=== PATIENT | female | born 1945 | race Two or more races ===

== ENCOUNTER → 2018-12-05 | Outpatient (CLI) | payer OTHER ==
[~2018-12-05] MED LIST: ALBU90OI61 INH; AMIT75 PO; CELE200 PO; GABA600 PO; HYDACE5 PO; Mirapex0.25 MG PO; OXYACE5T PO; PROP60 PO
[2018-12-05 13:38] LABS: BASOPHILS ABSOLUTE AUTO 0.05 K/mm3 (0.00-0.23); BASOPHILS PERCENT AUTO 1 % (0-2); EOSINOPHILS ABSOLUTE AUTO 0.22 K/mm3 (0.00-0.68); EOSINOPHILS PERCENT AUTO 4 % (0-6); Hematocrit 38.2 % (33.0-51.0); Hemoglobin 12.7 g/dL (11.5-16.0); IMMATURE GRAN ABSOLUTE AUTO 0.01 K/mm3 (0.00-0.10); IMMATURE GRAN PERCENT AUTO 0 % (0-1); LYMPHOCYTES ABSOLUTE AUTO 1.73 K/mm3 (0.84-5.20); LYMPHOCYTES PERCENT AUTO 31 % (21-46); MONOCYTES ABSOLUTE AUTO 0.46 K/mm3 (0.16-1.47); MONOCYTES PERCENT AUTO 8 % (4-13); Mean Corpuscular HGB 31.8 pg (26.0-34.0); Mean Corpuscular HGB Conc 33.2 g/dL (31.5-36.5); Mean Corpuscular Volume 96 fL (80-100); Mean Platelet Volume 10.1 fL (9.1-12.4); NEUTROPHILS ABSOLUTE AUTO 3.14 K/mm3 (1.96-9.15); NEUTROPHILS PERCENT AUTO 56 % (41-73); Platelet Count 245 K/mm3 (150-400); RDW Coefficient Variation 13.2 % (11.7-14.2); RDW Standard Deviation 46.8 fL (35.1-46.3); White Blood Cell Count 5.61 K/mm3 (4.00-11.30)
[2018-12-05 14:29] LABS: Alanine Aminotransfer (ALT/SGP 18 U/L (12-78); Albumin, Blood 3.5 g/dL (3.4-5.0); Albumin/Globulin Ratio 1.3 (0.8-1.8); Alk Phos 57 U/L (50-136); Anion Gap 8 mmol/L (6-16); Aspartate Aminotrans (AST/SGOT 9 U/L (12-37); Bilirubin, Total 0.4 mg/dL (0.1-1.0); Blood Urea Nitrogen 16 mg/dL (8-24); Bun/Creatinine Ratio 25.3 (12.0-20.0); CO2, Blood 25 mmol/L (21-32); Calcium, Blood 8.7 mg/dL (8.5-10.1); Chloride, Blood 107 mmol/L (98-108); Creatinine, Blood 0.63 mg/dL (0.40-1.00); Globulin, Blood 2.7 g/dL (2.2-4.0); Glomerular Filtration Rate >60 (60-); Glucose, Blood 155 mg/dL (70-99); Potassium, Blood 4.1 mmol/L (3.5-5.5); Sodium, Blood 140 mmol/L (136-145); Total Protein, Blood 6.2 g/dL (6.4-8.2)
[2018-12-05 16:45] LABS: Free Thyroxine 1.02 ng/dL (0.70-1.60)
[2018-12-05 16:50] LABS: Thyroid Stimulating Hormone 1.13 uIU/mL (0.360-4.800)
== END | disposition home or self-care (01) ==
LOC: LAB SHORT 13:27 → LAB 13:27
PROVIDERS: Hospitalist
DX: R55 Syncope and collapse (principal); R10.12 Left upper quadrant pain; R53.83 Other fatigue
CPT/HCPCS: 80053; 84439; 84443; 85025

== ENCOUNTER → 2020-09-19 | Outpatient (CLI) | payer OTHER ==
[2020-09-19 13:57] LABS: Anion Gap 8 mmol/L (6-16); Blood Urea Nitrogen 14 mg/dL (8-24); Bun/Creatinine Ratio 23.7 (12.0-20.0); CO2, Blood 27 mmol/L (21-32); Chloride, Blood 106 mmol/L (98-108); Creatinine, Blood 0.59 mg/dL (0.40-1.00); Glomerular Filtration Rate >60 (60-); Glucose, Blood 87 mg/dL (70-99); Magnesium, Blood 2.2 mg/dL (1.6-2.4); Potassium, Blood 3.8 mmol/L (3.5-5.5); Sodium, Blood 141 mmol/L (136-145); Thyroid Stimulating Hormone 0.972 uIU/mL (0.360-4.800)
== END | disposition home or self-care (01) ==
LOC: PLD 13:01 → LAB SHORT 13:01
PROVIDERS: Internal Medicine Cardiovascular Disease
DX: R94.31 Abnormal electrocardiogram [ECG] [EKG] (principal); R06.02 Shortness of breath; R00.2 Palpitations
CPT/HCPCS: 80048; 83735; 83880; 84439; 84443

== ENCOUNTER → 2021-02-16 | Outpatient (CLI) | payer OTHER ==
[2021-02-16 18:50] LABS: BASOPHILS ABSOLUTE AUTO 0.05 K/mm3 (0.00-0.23); BASOPHILS PERCENT AUTO 1 % (0-2); EOSINOPHILS ABSOLUTE AUTO 0.16 K/mm3 (0.00-0.68); EOSINOPHILS PERCENT AUTO 3 % (0-6); Hematocrit 38.2 % (33.0-51.0); Hemoglobin 12.5 g/dL (11.5-16.0); IMMATURE GRAN ABSOLUTE AUTO 0.01 K/mm3 (0.00-0.10); IMMATURE GRAN PERCENT AUTO 0 % (0-1); LYMPHOCYTES PERCENT AUTO 30 % (21-46); MONOCYTES ABSOLUTE AUTO 0.45 K/mm3 (0.16-1.47); MONOCYTES PERCENT AUTO 8 % (4-13); Mean Corpuscular HGB 31.6 pg (26.0-34.0); Mean Corpuscular HGB Conc 32.7 g/dL (31.5-36.5); Mean Corpuscular Volume 97 fL (80-100); Mean Platelet Volume 10.6 fL (9.1-12.4); NEUTROPHILS ABSOLUTE AUTO 3.28 K/mm3 (1.96-9.15); NEUTROPHILS PERCENT AUTO 58 % (41-73); Platelet Count 257 K/mm3 (150-400); RDW Coefficient Variation 13.4 % (11.7-14.2); RDW Standard Deviation 47.6 fL (35.1-46.3); Red Blood Cell Count 3.96 M/mm3 (3.80-5.20); White Blood Cell Count 5.65 K/mm3 (4.00-11.30)
[2021-02-16 20:27] LABS: Anion Gap 4 mmol/L (6-16); Blood Urea Nitrogen 20 mg/dL (8-24); Bun/Creatinine Ratio 29.5 (12.0-20.0); CO2, Blood 28 mmol/L (21-32); Calcium, Blood 8.9 mg/dL (8.5-10.1); Chloride, Blood 107 mmol/L (98-108); Creatinine, Blood 0.68 mg/dL (0.40-1.00); Glomerular Filtration Rate >60 (60-); Glucose, Blood 111 mg/dL (70-99); Potassium, Blood 4.3 mmol/L (3.5-5.5); Sodium, Blood 139 mmol/L (136-145)
== END | disposition home or self-care (01) ==
LOC: LAB 15:30 → LAB SHORT 15:30
PROVIDERS: Hospitalist
DX: R25.2 Cramp and spasm (principal)
CPT/HCPCS: 80048; 85025

== ENCOUNTER 2022-06-22 08:19 | Day surgery (SDC) | payer OTHER ==
[~2022-06-22] VITALS: Ht 167.6 cm; Wt 63.4 kg
[2022-06-22] MEDS ORDERED: FURO20 (08:37)
[2022-06-22] MEDS ORDERED: PREG150 (08:38)
[2022-06-22] MEDS ORDERED: MONT10T (08:38)
[2022-06-22] MEDS ORDERED: KLOR-CON M1010 MEQ (08:38)
[2022-06-22] MEDS ORDERED: TRAZ50 (08:38)
== END 2022-06-22 10:25 | disposition home or self-care (01) ==
LOC: ORSCSDS 08:19
PROVIDERS: Internal Medicine Gastroenterology
PROC: 0DB78ZX Excision of Stomach, Pylorus, Via Natural or Artificial Opening Endoscopic, Diagnostic (ICD-10-PCS; principal; 2022-06-22 10:00)
PROC: 0DB98ZX Excision of Duodenum, Via Natural or Artificial Opening Endoscopic, Diagnostic (ICD-10-PCS; principal; 2022-06-22 10:00)
DX: R10.13 Epigastric pain (principal); K29.80 Duodenitis without bleeding; K21.9 Gastro-esophageal reflux disease without esophagitis; R19.7 Diarrhea, unspecified; J44.9 Chronic obstructive pulmonary disease, unspecified; Z79.899 Other long term (current) drug therapy; F32.A Depression, unspecified
CPT/HCPCS: 88305; 88342; A9270; J2704; J7120

== ENCOUNTER 2022-11-01 09:35 | Day surgery (SDC) | payer OTHER ==
[~2022-11-01] VITALS: Ht 170.2 cm; Wt 65.3 kg
[~2022-11-01 09:35] MED LIST changes: +CEFD300 PO; +FURO20; +KLOR-CON M1010 MEQ; +MONT10T; +PREG150; +TRAZ50
--- NOTE | 2022-11-01 12:45 | NUR ---
PATIENT ARRIVED TO RECOVERY IN RECLINER. VSS. R RADIAL ACCESS SITE CLOSURE WITH 12 CC OF AIR IN TR BAND. SITE REVIEWED. AREA C/D/I, SOFT/NONTENDER, NO EVIDENCE OF HEMATOMA.
--- NOTE | 2022-11-01 14:00 | NUR ---
ALL AIR REMOVED FROM TR BAND ON R RADIAL SITE. SITE C/D/I. SMALL HEMATOMA PRESENT, PRESSURE DRESSING APPLIED. PATIENT DENIES ANY NUMBNESS OR TINGLING. VSS.
--- NOTE | 2022-11-01 14:34 | NUR ---
PATIENT DISCHARGED HOME AT THIS TIME VIA WHEELCHAIR. CLOTH DOT APPLIED TO R RADIAL ACCESS SITE. DISCHARGE INSTRUCTIONS AND HANDOUT GIVEN TO PATIENT. ALL QUESTIONS WERE ANSWERED. PATIENT INSTRUCTED TO CONTINUE HOME MEDICATIONS PRESCRIBED. FOLLOW UP APPOINTMENT SCHEDULED. PIV REMOVED PER PROTOCOL, CATHETER INTACT. PATIENT DRINKING AND EATING ADEQUATELY AND VOIDING WITHOUT DIFFICULTY. VSS.
== END 2022-11-01 14:09 | disposition home or self-care (01) ==
LOC: MHTC 09:35
DX: R94.39 Abnormal result of other cardiovascular function study (principal); I42.8 Other cardiomyopathies; I50.9 Heart failure, unspecified; J44.9 Chronic obstructive pulmonary disease, unspecified; Z88.0 Allergy status to penicillin
CPT/HCPCS: 76937; 93454; 99152; 99153; C1769; C1887; C1894; J1644; J2250; J3010; J7030; J7050; Q9967

== ENCOUNTER → 2023-03-23 | Outpatient (CLI) | payer OTHER ==
[2023-03-23 14:00] LABS: Adenovirus F 40/41 Not Detected (NOT DETECT); Astrovirus Not Detected (NOT DETECT); Campylobacter Sp Not Detected (NOT DETECT); Cryptosporidium Not Detected (NOT DETECT); Cyclospora Cayetanensis Not Detected (NOT DETECT); E. Coli O157 Not Detected (NOT DETECT); Entamoeba Histolytica Not Detected (NOT DETECT); Enteroaggregative E. coli-EAEC Not Detected (NOT DETECT); Enteropathogenic E. coli-EPEC Not Detected (NOT DETECT); Enterotoxigenic E. coli-ETEC Not Detected (NOT DETECT); Giardia Lamblia Not Detected (NOT DETECT); Norovirus GI/GII Not Detected (NOT DETECT); Plesiomonas Shigelloides Not Detected (NOT DETECT); Rotavirus A Not Detected (NOT DETECT); Salmonella Sp Not Detected (NOT DETECT); Sapovirus Not Detected (NOT DETECT); Shiga Toxin-prod E. coli-STEC Not Detected (NOT DETECT); Shigella/Enteroin E. coli-EIEC Not Detected (NOT DETECT); Vibrio Cholerae Not Detected (NOT DETECT); Vibrio Sp Not Detected (NOT DETECT); Yersinia Enterocolitica Not Detected (NOT DETECT)
== END | disposition home or self-care (01) ==
LOC: LAB SHORT 07:00 → LAB 07:00
PROVIDERS: Physician Assistant Medical
DX: R19.7 Diarrhea, unspecified (principal)
CPT/HCPCS: 87507

== ENCOUNTER 2023-08-18 10:39 | Emergency (ER) | payer OTHER ==
[~2023-08-18] VITALS: Ht 167.6 cm; Wt 65.8 kg
[2023-08-18 10:52] VITALS: BP 137/86
[2023-08-18 11:23] LABS: BASOPHILS ABSOLUTE AUTO 0.03 K/mm3 (0.00-0.23); BASOPHILS PERCENT AUTO 1 % (0-2); EOSINOPHILS ABSOLUTE AUTO 0.01 K/mm3 (0.00-0.68); EOSINOPHILS PERCENT AUTO 0 % (0-6); Hematocrit 39.2 % (33.0-51.0); Hemoglobin 13.1 g/dL (11.5-16.0); IMMATURE GRAN ABSOLUTE AUTO 0.01 K/mm3 (0.00-0.10); IMMATURE GRAN PERCENT AUTO 0 % (0-1); LYMPHOCYTES PERCENT AUTO 25 % (21-46); MONOCYTES ABSOLUTE AUTO 0.71 K/mm3 (0.16-1.47); MONOCYTES PERCENT AUTO 11 % (4-13); Mean Corpuscular HGB 31.6 pg (26.0-34.0); Mean Corpuscular HGB Conc 33.4 g/dL (31.5-36.5); Mean Corpuscular Volume 95 fL (80-100); Mean Platelet Volume 9.9 fL (9.1-12.4); NEUTROPHILS ABSOLUTE AUTO 4.12 K/mm3 (1.96-9.15); NEUTROPHILS PERCENT AUTO 63 % (41-73); Platelet Count 228 K/mm3 (150-400); RDW Coefficient Variation 12.8 % (11.7-14.2); RDW Standard Deviation 44.5 fL (35.1-46.3); Red Blood Cell Count 4.14 M/mm3 (3.80-5.20); White Blood Cell Count 6.48 K/mm3 (4.00-11.30)
[2023-08-18 11:36] LABS: Albumin, Blood 3.6 g/dL (3.4-5.0); Albumin/Globulin Ratio 1.2 (0.8-1.8); Bilirubin, Total 0.5 mg/dL (0.1-1.0); Bun/Creatinine Ratio 14.6 (12.0-20.0); Calcium, Blood 8.9 mg/dL (8.5-10.1); Creatinine, Blood 0.69 mg/dL (0.40-1.00); Globulin, Blood 3.1 g/dL (2.2-4.0); Potassium, Blood 3.1 mmol/L (3.5-5.5); Total Protein, Blood 6.7 g/dL (6.4-8.2)
[2023-08-18] MEDS ORDERED: AZIT250 PO (14:00)
== END 2023-08-18 14:14 | disposition home or self-care (01) ==
LOC: ER 10:39
PROVIDERS: Physician Assistant
DX: J44.1 Chronic obstructive pulmonary disease with (acute) exacerbation (principal); E87.6 Hypokalemia; Z88.0 Allergy status to penicillin; Z88.1 Allergy status to other antibiotic agents; Z79.899 Other long term (current) drug therapy; I10 Essential (primary) hypertension; E11.9 Type 2 diabetes mellitus without complications; I25.10 Atherosclerotic heart disease of native coronary artery without angina pectoris; Z77.22 Contact with and (suspected) exposure to environmental tobacco smoke (acute) (chronic)
CPT/HCPCS: 71046; 80053; 83690; 83880; 84484; 85025; 93005; 93010; 94640; 94664; 99285-25; A9270

== ENCOUNTER 2023-11-15 13:17 | Day surgery (SDC) | payer OTHER ==
[~2023-11-15] VITALS: Ht 167.6 cm; Wt 65.4 kg
[~2023-11-15 13:17] MED LIST changes: +AZIT250 PO
[2023-11-15] MEDS ORDERED: Acetaminophen325 M1 (13:41)
[2023-11-15] MEDS ORDERED: AEROECLIPSE II1 EACH (13:41)
[2023-11-15] MEDS ORDERED: METO25ER (13:41)
[2023-11-15 15:32] VITALS: BP 120/87
== END 2023-11-15 15:49 | disposition home or self-care (01) ==
LOC: ORSCSDS 13:17
PROVIDERS: Internal Medicine Gastroenterology
PROC: 0DBL8ZX Excision of Transverse Colon, Via Natural or Artificial Opening Endoscopic, Diagnostic (ICD-10-PCS; principal; 2023-11-15 14:30)
PROC: 0DBK8ZX Excision of Ascending Colon, Via Natural or Artificial Opening Endoscopic, Diagnostic (ICD-10-PCS; principal; 2023-11-15 14:30)
PROC: 0DBE8ZX Excision of Large Intestine, Via Natural or Artificial Opening Endoscopic, Diagnostic (ICD-10-PCS; principal; 2023-11-15 14:30)
DX: R19.4 Change in bowel habit (principal); R15.9 Full incontinence of feces; C18.2 Malignant neoplasm of ascending colon; K63.5 Polyp of colon; D12.2 Benign neoplasm of ascending colon; R52 Pain, unspecified; I25.10 Atherosclerotic heart disease of native coronary artery without angina pectoris; J44.9 Chronic obstructive pulmonary disease, unspecified; I10 Essential (primary) hypertension; E11.9 Type 2 diabetes mellitus without complications; F03.90 Unspecified dementia, unspecified severity, without behavioral disturbance, psychotic disturbance, mood disturbance, and anxiety; Z79.899 Other long term (current) drug therapy
CPT/HCPCS: 82947; 88305; J0461; J2001; J2405; J2704; J7120; Q9968

== ENCOUNTER 2024-06-14 08:49 | Day surgery (SDC) | payer OTHER ==
[2024-06-14] VITALS (13 sets, daily range): BP systolic 91–132; BP diastolic 59–90
[~2024-06-14] VITALS: Ht 167.6 cm; Wt 62.0 kg
[~2024-06-14 08:49] MED LIST changes: +AEROECLIPSE II1 EACH; +Acerola C500 MG PO; +Acetaminophen 500 MG Tab PO SCH; +Acetaminophen325 M1; +BUDESONIDE0.5 MG/25 NEB; +Chlorhexidine Mouth Care 15 ML UDC MT SCH; +Lactated Ringer's 1,000 ML IV SCH; +METO25ER PO; +OxyCODONE HCL 10 MG TABCR PO SCH; -PREG150; +PREG150 PO; +Ropivacaine 0.5% HCl/Pf 123.125 MG,EPINEPHrine HCL 0.25 MG,Ketorolac Tromethamine 15 MG... INFIL SCH; +Tranexamic Acid 100 ML IV SCH
[2024-06-14] MEDS ORDERED: propofoL 40 ML IV ONE (09:08)
[2024-06-14] MEDS ORDERED: FentaNYL Citrate 50 MCG/ML 2 ML Injection ONE ×2 (09:08→14:27)
[2024-06-14] MEDS ORDERED: CeFAZolin Sodium 2,000 MG in NS 100 ML IV SCH ×2 (09:20→18:30)
--- NOTE | 2024-06-14 09:30 | NUR ---
Ambulatory in Day Surgery. History, Chart, Medications and Allergies reviewed before start of procedure. Lungs clear T/O to Auscultation. Patient confirms NPO status and agrees with scheduled surgery. Pre-Op teaching done. Pt verbalizes understanding. PT BELONGINGS GIVEN TO FRIEND FOR SAFEKEEPING.
[2024-06-14] MEDS ORDERED: Budesonide 0.5 MG/2 ML RESP INH SCH (10:35)
[2024-06-14] MEDS ORDERED: Magnesium Hydroxide Conc 10 ML UDC PO PRN ×2 (10:40→12:05)
[2024-06-14] MEDS ORDERED: DiphenhydrAMINE HCL 25 MG Cap PO PRN ×2 (10:40→12:05)
[2024-06-14] MEDS ORDERED: Lactated Ringer's 1,000 ML IV SCH ×2 (10:40→12:05)
[2024-06-14] MEDS ORDERED: HYDROmorphone HCl/Pf 1MG SYR IV PRN ×2 (10:40→12:00)
[2024-06-14] MEDS ORDERED: Metoclopramide HCl 5MG / ML 2ML Vial IV PRN ×2 (10:40→12:05)
[2024-06-14] MEDS ORDERED: Phenylephrine HCl 100 MCG/ML-NS 10MLSYR (1MG/10ML) ONE (10:42)
[2024-06-14] MEDS ORDERED: Bisacodyl 10 MG Supp PR PRN ×2 (10:45→12:00)
[2024-06-14] MEDS ORDERED: Ondansetron HCl 2 MG / ML 2ML Vial IV PRN ×2 (10:45→11:55)
[2024-06-14] MEDS ORDERED: OxyCODONE HCL 5 MG TAB PO PRN ×4 (10:45→12:00)
[2024-06-14] MEDS ORDERED: Promethazine HCl 25 MG Tab PO PRN ×2 (10:45→11:55)
[2024-06-14] MEDS ORDERED: Pramipexole DI-HCL 0.25 MG Tab PO PRN (10:50)
[2024-06-14] MEDS ORDERED: Albuterol HFA200 ACT/6.7 GM INH INH PRN (10:50)
[2024-06-14] MEDS ORDERED: Ketorolac Tromethamine 15mg Vial IV SCH (12:00)
[2024-06-14] MEDS ORDERED: Acetaminophen 500 MG Tab PO SCH ×2 (16:00)
--- NOTE | 2024-06-14 17:57 | NUR ---
SHIFT SUMMARY S/P RTKA PT UP IN CHAIR FOR SHIFT. WILL WORK WITH THERAPY TOMORROW MORNING. REPORTS PAIN WELL CONTROLLED PER EMAR, POLAR MELY IN PLACE. DRESSING CDI. PT HAS NAUSEA WITH EATING BUT DENIES AFTER. DENIES NEED FOR MEDICATIONS. CALLING APPROPRIATLY.
[2024-06-14] MEDS ORDERED: Metoprolol Succinate 25 MG TABCR PO SCH (18:00)
[2024-06-14] MEDS ORDERED: Docusate Sodium 100 MG Cap PO SCH ×2 (21:00)
[2024-06-14] MEDS ORDERED: Pregabalin 75 MG Cap PO SCH (21:00)
[2024-06-15] VITALS (7 sets, daily range): BP systolic 75–114; BP diastolic 47–75
[2024-06-15 05:04] LABS: BASOPHILS ABSOLUTE AUTO 0.02 K/mm3 (0.00-0.23); BASOPHILS PERCENT AUTO 0 % (0-2); EOSINOPHILS ABSOLUTE AUTO 0.14 K/mm3 (0.00-0.68); EOSINOPHILS PERCENT AUTO 2 % (0-6); Hematocrit 40.6 % (33.0-51.0); Hemoglobin 13.2 g/dL (11.5-16.0); IMMATURE GRAN ABSOLUTE AUTO 0.01 K/mm3 (0.00-0.10); IMMATURE GRAN PERCENT AUTO 0 % (0-1); LYMPHOCYTES ABSOLUTE AUTO 1.16 K/mm3 (0.84-5.20); LYMPHOCYTES PERCENT AUTO 14 % (21-46); MONOCYTES ABSOLUTE AUTO 0.76 K/mm3 (0.16-1.47); MONOCYTES PERCENT AUTO 9 % (4-13); Mean Corpuscular HGB 31.1 pg (26.0-34.0); Mean Corpuscular HGB Conc 32.5 g/dL (31.5-36.5); Mean Corpuscular Volume 96 fL (80-100); Mean Platelet Volume 9.4 fL (9.1-12.4); NEUTROPHILS ABSOLUTE AUTO 6.14 K/mm3 (1.96-9.15); NEUTROPHILS PERCENT AUTO 75 % (41-73); Platelet Count 206 K/mm3 (150-400); RDW Coefficient Variation 13.8 % (11.7-14.2); RDW Standard Deviation 48.7 fL (35.1-46.3); Red Blood Cell Count 4.25 M/mm3 (3.80-5.20); White Blood Cell Count 8.23 K/mm3 (4.00-11.30)
[2024-06-15 05:26] LABS: Calcium, Blood 8.5 mg/dL (8.5-10.1); Creatinine, Blood 0.59 mg/dL (0.40-1.00); Magnesium, Blood 2.3 mg/dL (1.6-2.4); Potassium, Blood 3.7 mmol/L (3.5-5.5)
--- NOTE | 2024-06-15 06:23 | NUR ---
SHIFT SUMMARY PT A&O X4, ALTHOUGH SOME FORGETFULNESS NOTED. PT PLEASANT AND COOPERATIVE WITH CARE. PT RESTED ON AND OFF THROUGHOUT SHIFT. VSS. PT DENIES PAIN IN R KNEE UNTIL AROUND 0500 AM WHEN PT REPORTED "FEELING MY RESTLESS LEGS". MEDICATION PER MAR WITH ADEQUATE RELIEF. PT WITH ROBLES WRAP BANDAGE IN PLACE WITH CYRO IN PLACE. PT AMBULATING TO RESTROOM WITH SBA, FWW AND GB; TOLERATING WELL. PT VOIDING, REPORTS NO BM. PT TOLERATING PO INTAKE AT THIS TIME. NO ACUTE CHANGES. PT ABLE TO MAKE NEEDS KNOWN. WILL UPDATE ONCOMING RN
[2024-06-15] MEDS ORDERED: Aspirin 81 MG Chew PO SCH ×2 (09:00)
[2024-06-15] MEDS ORDERED: NS 500 ML IV ONE (09:00)
[2024-06-15] MEDS ORDERED: ASPI81CH PO (10:51)
--- NOTE | 2024-06-15 14:19 | NUR ---
DISCHARGE PT EDUCATED ON AND RECEIVED PRINTED DC INSTRUCTIONS AND VERB AN UNDERSTANDING. IV DC'D. EXTRA DRESSINGS GIVEN TO PT. PT REPORTS FILLING NEW RX'S PRIOR TO SURGERY. PT GATHERED PERSONAL BELONGINGS. DR. GARBER AWARE OF NEAR SYNCOPAL EVENT THIS AM AND SAID PT OKAY TO GO HOME. PT REPORTS FEELING BETTER AND IS COMFORTABLE LEAVING. PT WAITING FOR RIDE HOME.
--- NOTE | 2024-06-15 15:40 | NUR ---
PT DISCHARGED AT THIS TIME.
== END 2024-06-15 16:29 | disposition home or self-care (01) ==
LOC: ORSCMMR 08:49 → ORD 10:30 → SURS 12:25 → ORSCMMR 12:25 → SURS 06-15 16:29 → ORSCMMR 06-15 16:29
PROVIDERS: Orthopaedic Surgery
PROC: 0SRC0JZ Replacement of Right Knee Joint with Synthetic Substitute, Open Approach (ICD-10-PCS; principal; 2024-06-14 10:30)
DX: M17.11 Unilateral primary osteoarthritis, right knee (principal); J44.9 Chronic obstructive pulmonary disease, unspecified; I25.10 Atherosclerotic heart disease of native coronary artery without angina pectoris; J45.909 Unspecified asthma, uncomplicated; K21.9 Gastro-esophageal reflux disease without esophagitis; Z85.038 Personal history of other malignant neoplasm of large intestine; G25.81 Restless legs syndrome; Z79.899 Other long term (current) drug therapy
CPT/HCPCS: 36415; 73560-RT; 80048; 83735; 85025; 94760; 97110; 97112; 97116; 97161; 97530; A9270; C1713; C1776; J0171; J0690; J0735; J1885; J2371; J2405; J2704; J2795; J3010; J7030; J7120

== ENCOUNTER 2024-12-26 10:28 | Day surgery (SDC) | payer OTHER ==
[~2024-12-26] VITALS: Ht 167.6 cm; Wt 60.2 kg
[~2024-12-26 10:28] MED LIST changes: +ASPI81CH PO; -Acetaminophen 500 MG Tab PO SCH; -Chlorhexidine Mouth Care 15 ML UDC MT SCH; +Lactated Ringer's 1,000 ML IV ONE; -Lactated Ringer's 1,000 ML IV SCH; -OxyCODONE HCL 10 MG TABCR PO SCH; -Ropivacaine 0.5% HCl/Pf 123.125 MG,EPINEPHrine HCL 0.25 MG,Ketorolac Tromethamine 15 MG... INFIL SCH; -Tranexamic Acid 100 ML IV SCH; +propofoL 50 ML IV ONE
[2024-12-26] MEDS ORDERED: ACET500 (11:24)
[2024-12-26] MEDS ORDERED: Lactated Ringer's 1,000 ML IV ONE (12:37)
[2024-12-26 13:45] VITALS: BP 127/93
== END 2024-12-26 13:49 | disposition home or self-care (01) ==
LOC: ORSCSDS 10:28
PROVIDERS: Internal Medicine Gastroenterology
PROC: 0DBP8ZX Excision of Rectum, Via Natural or Artificial Opening Endoscopic, Diagnostic (ICD-10-PCS; principal; 2024-12-26 12:00)
DX: Z85.038 Personal history of other malignant neoplasm of large intestine (principal); D12.8 Benign neoplasm of rectum; K62.1 Rectal polyp; K64.8 Other hemorrhoids; Z90.49 Acquired absence of other specified parts of digestive tract; E11.9 Type 2 diabetes mellitus without complications; I25.10 Atherosclerotic heart disease of native coronary artery without angina pectoris; J44.9 Chronic obstructive pulmonary disease, unspecified; I10 Essential (primary) hypertension; I47.10 Supraventricular tachycardia, unspecified; Z79.899 Other long term (current) drug therapy
CPT/HCPCS: 82947; 88305; J2704; J7120